=== PATIENT | male | born 1990 | race Two or more races ===

== ENCOUNTER 2018-04-01 20:47 | Emergency (ER) | payer OTHER ==
[~2018-04-01] VITALS: Ht 165.1 cm; Wt 73.0 kg
[2018-04-01] MEDS ORDERED: NKM (20:59)
--- NOTE | 2018-04-01 21:29 | Emergency Room Report ---
History of Present Illness General Chief Complaint: Laceration Source: Patient Present Illness HPI Miky is a pleasant 27 yo male who presents with 2 small cuts on his right hand. He cut his hand on the corner of metal equipment at work. He has two 1 cm cuts on the dorsal surface of this 2nd and 3rd digits. Last tetanus booster received 4 years ago. Allergies: Uncoded Allergies: UNK ANTIBIOTIC (Allergy, Unknown, 04/01/18) Patient History Past Medical History: none Nursing Documentation-PMH Past Medical History: No Stated History Review of Systems Constitutional: Denies: fever, malaise Neurological: Denies: numbness, paresthesia Physical Exam Vital Signs Date Time Temp Pulse Resp B/P (MAP) Pulse Ox O2 Delivery O2 Flow Rate FiO2 04/01/18 20:52 98.3 66 18 126/77 97 Room Air 98.2 Sp02 EP Interpretation: reviewed, normal General Appearance: normal inspection, well appearing, no apparent distress, alert, GCS 15, non-toxic Head: normocephalic, atraumatic Musculoskeletal: normal range of motion Neurologic: alert, oriented x3 Psychiatric: normal inspection, judgement/insight normal Skin: laceration - 2 superficial lacerations well-approximated skin 1 cm in length on 2nd and 3rd digits right hand dorsal surface Procedures Laceration/Wound Repair Laceration/Wound Repair : Consent: Written Wound Location: upper extremity Wound's Depth, Shape: superficial Wound Explored: clean Betadine Prep?: No Wound Debrided: minimal Wound Repaired With: Dermabond Layer Closure?: No Sterile Dressing Applied?: No Splint Applied?: No Patient Tolerated: Well Progress patient washed hands thoroughly with soap prior to dermabond application Medical Decision Making Diagnostic Impression: Primary Impression: Laceration Additional Impression: Laceration of finger ER Course superficial lacerations repaired with dermabond NVI given wound care instructions Last Vital Signs Date Time Temp Pulse Resp B/P (MAP) Pulse Ox O2 Delivery O2 Flow Rate FiO2 04/01/18 20:52 98.3 66 18 126/77 97 Room Air 98.2 Michelle Saavedra MD Apr 01, 2018 21:29
[2018-04-01 21:30] VITALS: BP 117/77
[2018-04-01 21:38] VITALS: BP 126/77
== END 2018-04-01 21:39 | disposition home or self-care (01) ==
LOC: EMR 21:34
DX: S61.212A Laceration without foreign body of right middle finger without damage to nail, initial encounter (principal); S61.214A Laceration without foreign body of right ring finger without damage to nail, initial encounter; W31.89XA Contact with other specified machinery, initial encounter; Y93.G3 Activity, cooking and baking; Y92.511 Restaurant or cafe as the place of occurrence of the external cause
CPT/HCPCS: 99282

== ENCOUNTER 2019-07-17 14:53 | Emergency (ER) | payer OTHER ==
[~2019-07-17] VITALS: Ht 165.1 cm; Wt 57.2 kg
[~2019-07-17 14:53] MED LIST: NKM
[2019-07-17 15:04] VITALS: BP 132/80
--- NOTE | 2019-07-17 15:14 | Emergency Room Report ---
History of Present Illness General Chief Complaint: Eye Problems Source: Patient Present Illness HPI 28-year-old male with no significant past medical history here complaining of 1 day of right eyelid swelling and pruritus. Denies injury or trauma to the eye. Complains of yellow discharge that he noticed coming from the eye this morning. Denies wearing contact lenses or glasses. Has not taken medication for symptom relief. Denies photophobia, blurred vision, denies chest pain, shortness of breath, palpitation, URI symptoms. Allergies: Uncoded Allergies: UNK ANTIBIOTIC (Allergy, Unknown, 04/01/18) Patient History Past Medical History: see triage record Past Surgical History: unable to obtain Pertinent Family History: none Immunizations: UTD Reviewed Nursing Documentation: PMH: Agreed; PSxH: Agreed Nursing Documentation-PMH Past Medical History: No Stated History Review of Systems All Other Systems: negative except mentioned in HPI Physical Exam Vital Signs Date Time Temp Pulse Resp B/P (MAP) Pulse Ox O2 Delivery O2 Flow Rate FiO2 07/17/19 15:04 98.4 74 18 132/80 (97) 97 Room Air Sp02 EP Interpretation: reviewed, normal General Appearance: no apparent distress, alert, GCS 15, non-toxic Head: normocephalic, atraumatic Eyes: right eye other - Conjunctivae injected; bilateral eye PERRL ENT: hearing grossly normal, normal pharynx, no angioedema, normal voice Neck: full range of motion, supple, thyroid normal, no meningismus, no bony tend, no carotid bruits, supple/symm/no masses Respiratory: chest non-tender, lungs clear, normal breath sounds, no rhonchi, no retraction, no wheezing, speaking full sentences Cardiovascular #1: regular rate, rhythm, no edema, no murmur, normal capillary refill Gastrointestinal: non tender, soft Rectal: deferred Genitourinary: no CVA tenderness Musculoskeletal: back normal Neurologic: alert, oriented Psychiatric: normal inspection, judgement/insight normal, memory normal Skin: no rash Lymphatic: no adenopathy Medical Decision Making PA Attestation All my diagnosis and treatment plans were reviewed ad discussed with my supervising physician Dr. Paulino Diagnostic Impression: Primary Impression: Conjunctivitis, bacterial Additional Impression: Conjunctivitis, allergic ER Course 28-year-old male with no significant past medical history here complaining of 1 day of right eyelid swelling and pruritus. Denies injury or trauma to the eye. Complains of yellow discharge that he noticed coming from the eye this morning. Denies wearing contact lenses or glasses. Has not taken medication for symptom relief. Denies photophobia, blurred vision, denies chest pain, shortness of breath, palpitation, URI symptoms. Ddx considered but are not limited to: bacterial conjunctivitis, allergic conjunctivitis, viral conjunctivitis, periorbital cellulitis, global trauma Vital signs: are WNL, pt. is afebrile H&PE are most consistent with: Bacterial conjunctivitis, allergic conjunctivitis ORDERS: Ofloxacin eyedrops, Claritin ED INTERVENTIONS: None required at this time. DISCHARGE: At this time pt. is stable for d/c to home. Will provide printed patient care instructions, and any necessary prescriptions. Care plan and follow up instructions have been discussed with the patient prior to discharge. Last Vital Signs Date Time Temp Pulse Resp B/P (MAP) Pulse Ox O2 Delivery O2 Flow Rate FiO2 07/17/19 15:04 98.4 74 18 132/80 (97) 97 Room Air Disposition: HOME, SELF-CARE Condition: Stable Scripts Loratadine (CLARITIN) 10 Mg Tablet 10 MG ORAL DAILY, #14 TAB Prov: Nicole Dukes 07/17/19 Ofloxacin (Ofloxacin) 5 Ml Drops 2 DROP OP Q6HR for 7 Days, #5 ML Prov: Nicole Dukes 07/17/19 Patient Instructions: Bacterial Conjunctivitis, [id number] Additional Instructions: Use eyedrops as directed, take medication as directed, follow-up with your primary care provider. If worsening symptoms return to the emergency room Nicole Dukes Jul 17, 2019 15:14
[2019-07-17] MEDS ORDERED: CLARITIN10 MG ORAL (15:15)
[2019-07-17] MEDS ORDERED: OFLOXACIN10 ML OP (15:15)
[2019-07-17 15:18] VITALS: BP 132/80
--- NOTE | 2019-07-17 15:20 | NUR ---
ER DISCHARGE NOTE: Patient is cleared to be discharged per ERMD, pt is aox4, on room air, with stable vital signs. pt was given dc and prescription instructions, pt was able to verbalize understanding, pt is able to ambulate with steady gait. pt took all belongings.
== END 2019-07-17 15:40 | disposition home or self-care (01) ==
LOC: EMR 15:35
DX: H10.11 Acute atopic conjunctivitis, right eye (principal)
CPT/HCPCS: 99282

== ENCOUNTER 2019-07-29 16:58 | Emergency (ER) | payer OTHER ==
[~2019-07-29] VITALS: Ht 165.1 cm; Wt 70.8 kg
[~2019-07-29 16:58] MED LIST changes: +CLARITIN10 MG ORAL; +OFLOXACIN10 ML OP
[2019-07-29] MEDS ORDERED: Bacitracin Oint UD TOPIC ONE (17:30)
[2019-07-29 17:39] VITALS: BP 142/98
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
[2019-07-29] MEDS ORDERED: CLINDAMYCIN HC300 MG ORAL (18:09)
[2019-07-29] MEDS ORDERED: IBUPROFEN600 MG ORAL (18:09)
[2019-07-29 18:20] VITALS: BP 142/98
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
--- NOTE | 2019-07-30 08:00 | Diagnostic Imaging Report ---
Clinical Indication:Injury, pain, swelling Technique: 3 views of the right wrist Comparison: None Findings: No acute fractures. No dislocations. The joint spaces are preserved Impression: Negative
--- NOTE | 2019-07-30 08:00 | Diagnostic Imaging Report ---
Indication: Injury, pain, swelling Technique: 3 views right hand Comparison: none Findings: No acute fractures. No dislocations. The joint spaces are preserved. Impression: Negative
== END 2019-07-29 18:20 | disposition home or self-care (01) ==
LOC: EMR 18:20
DX: S60.221A Contusion of right hand, initial encounter (principal); S69.91XA Unspecified injury of right wrist, hand and finger(s), initial encounter; W22.8XXA Striking against or struck by other objects, initial encounter; Y92.9 Unspecified place or not applicable; Z88.8 Allergy status to other drugs, medicaments and biological substances
CPT/HCPCS: 29125; 99283